=== PATIENT | female | born 1975 | race African-American/Black ===

== ENCOUNTER → 2016-10-28 | Outpatient (CLI) | payer OTHER ==
[~2016-10-28] MED LIST: IBUP-232 PO; PREN0.01 PO; SENN1TAB PO
[2016-10-28 15:09] LABS: HEMATOCRIT 33.7 % (35.0-46.0); REVIEW FLAG FINAL
== END ==
LOC: CLAB 14:27
PROVIDERS: ATTEND Obstetrics & Gynecology
DX: Z34.83 Encounter for supervision of other normal pregnancy, third trimester (principal)
CPT/HCPCS: 36415; 82951; 85014; 85018; 86703; 86850; 86900; 86901; 87340; 90384; J2790

== ENCOUNTER → 2016-11-25 | Outpatient (CLI) | payer OTHER ==
[~2016-11-25] MED LIST changes: +BETAMETHASONE SOD PHOS/ACETATE SUSP 30 MG/5 ML VIAL IM SCH
== END ==
LOC: HOBG 13:00 → HPND 13:00
PROVIDERS: ATTEND Obstetrics & Gynecology
DX: Z34.83 Encounter for supervision of other normal pregnancy, third trimester (principal); Z79.899 Other long term (current) drug therapy
CPT/HCPCS: 96372; J0702

== ENCOUNTER → 2016-11-26 | Outpatient (CLI) | payer OTHER ==
[~2016-11-26] MED LIST changes: +BETAMETHASONE SOD PHOS/ACETATE SUSP 30 MG/5 ML VIAL IM ONE; -BETAMETHASONE SOD PHOS/ACETATE SUSP 30 MG/5 ML VIAL IM SCH
== END ==
LOC: HOBG 13:07
PROVIDERS: ATTEND Obstetrics & Gynecology
DX: O90.9 Complication of the puerperium, unspecified (principal)
CPT/HCPCS: J0702

== ENCOUNTER 2016-12-20 06:23 | Observation (INO) | payer OTHER ==
[~2016-12-20 06:23] MED LIST changes: -BETAMETHASONE SOD PHOS/ACETATE SUSP 30 MG/5 ML VIAL IM ONE; -IBUP-232 PO; -SENN1TAB PO
--- NOTE | 2016-12-20 07:25 | PD ---
HPI Chief Complaint Contractions 36 weeks Date Seen: Dec 20, 2016 Travel History International Travel<30 Days: No Contact w/Intl Traveler<30Days: No Known Affected Area: No History of Present Illness HPI Patient is a 41-year-old black female 36 weeks presents with irregular contractions. 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 [place] Alcohol Use: No Tobacco Use: No Substance Abuse: No Allergies-Medications (Allergen,Severity, Reaction): Coded Allergies: No Known Allergies (Unverified , 10/06/13) Home Meds Reported Medications Multivit/Min/Fol Ac/Iron/Pren ( Vit ( Plus)) Tab1 Tab PO DAILY CONTINUE WHILE 10/06/13 Review of Systems General / Constitutional: No: Fever, Weight Gain, Chills, Other Eyes: No: Diploplia, Blurred Vision, Visual changes, Pain, Photophobia HENT: No: Headaches, Vertigo, Lightheadedness Cardiovascular: No: Irregular Rhythm, Chest Pain or Discomfort, Palpitations, Tachycardia, Syncope, Varicosities, Edema, Cyanosis Respiratory: No: Cough, Short of Breath, Other Gastrointestinal: No: Nausea, Vomiting, Diarrhea Genitourinary: No: Decreased Urinary Output, Oliguria Musculoskeletal: No: Limited ROM, Weakness, Cramping, Edema, Pain Skin: No Rash, No Itching, No Dryness, No Lumps, No Change in Pigmentation, No Change in Nails, No Alopecia, No Lesions Neurologic: No: Weakness, Dizziness, Syncope, Focal Abnormalities, Coordination Problem, Headache, Slurred Speech, Seizures Psychiatric: No: Depression, Suicidal Ideations, Homicidal Ideation Endocrine: No: Heat Intolerance, Cold Intolerance, Polydipsia, Polyuria, Other Physical Exam Narrative GENERAL: Well-nourished, well-developed patient. SKIN: Warm and dry. HEAD: Normocephalic and atraumatic. EYES: No scleral icterus. No injection or drainage. ENT: No nasal drainage noted. Mucous membranes pink. Airway patent. NECK: Supple, trachea midline. No JVD. CARDIOVASCULAR: Regular rate and rhythm without murmurs, gallops, or rubs. RESPIRATORY: Breath sounds equal bilaterally. No accessory muscle use. BREASTS: Bilateral exam showed no masses , no retractions, no nipple discharge. ABDOMEN/GI: Abdomen soft, non-tender, bowel sounds present, no rebound, no guarding Gravid to [36-] weeks size Fundal Height: [-35] GENITOURINARY: External Genitalia: intact and normal in appearance BUS glands: [-] Cervix: [-] Dilatation: [4-5-] Effacement: [-50] Station: [-3] floating Presentation: [-vtx] Membranes: [intact ] Uterine Contractions: [-irreg] FHT's: Category: [-1] Baseline: [-133] Reactive: [yes-] Variability: [-mod] Decels: [-none] EXTREMITIES: No cyanosis or edema. BACK: Nontender without obvious deformity. No CVA tenderness. NEUROLOGICAL: Awake and alert. Motor and sensory grossly within normal limits. Five out of 5 muscle strength in all muscle groups. Normal speech. MDM Interpretation(s) Patient is a 41-year-old black female at 36 weeks presents with the irregular contractions, no bleeding or leakage of fluid, heart rate tracing is reactive, she is soraida every 4-7 minutes approximately, cervix is multiparous 4-5/ 50% very posterior with floating presenting part is vertex. Her physicians Dr. Duval and I spoke with her this morning. Dr. alfonso would like to keep her in the hospital at least until midday to reevaluated to allow see if she's, change her cervix or progress that she has a history of fast labor in the past approximately that this gestation she did not with comfortable sending her home and so she will stay and be checked by her OB provider Plan Plan to observe the patient in hospital to await any cervical change and reevaluate in a few hours Diagnosis Diagnosis: Primary Impression: Threatened premature labor affecting , less than 37 weeks, antepartum Shabbir Hill II, MD Dec 20, 2016 07:25
[2016-12-20] MEDS ORDERED: SODIUM CHLORIDE 0.9% FLUSH 5 ML FLUSH IVF PRN (07:45)
[2016-12-20] MEDS ORDERED: LIDOCAINE HCL 1% 50 ML VIAL I-DERMAL PRN (08:30)
[2016-12-20] MEDS ORDERED: SODIUM CHLORIDE 0.9% FLUSH 5 ML FLUSH IVF SCH (09:00)
--- NOTE | 2016-12-20 09:15 | PD.OB.ANTE ---
Subjective Diagnosis: (1) Threatened premature labor affecting , less than 37 weeks, antepartum Diagnosis: Principal Antepartum ROS: Reports: Contractions (irregular, much less now s/p IVF & bedrest), Denies: New complaints, Loss of fluid, Vaginal bleeding, movement normal, Other Objective Physical Exam GENERAL: Well-nourished, well-developed patient. resting in bed CARDIOVASCULAR: Regular rate and rhythm without murmurs, gallops, or rubs. RESPIRATORY: Breath sounds equal bilaterally. No accessory muscle use. ABDOMEN/GI: Abdomen soft, non-tender. Fundus: c/w dates GENITOURINARY: deferred this check FHT's: Cat I but due to pt sleeping & rolling from side to side occasionally has been coming off monitor EXTREMITIES: No cyanosis or edema, non-tender, without signs of DVT. Assessment and Plan Problem List: (1) Threatened premature labor affecting , less than 37 weeks, antepartum Status: Acute Assessment and Plan 41 yo at 35w6d admit for contractions/dilation, threatened labor 1) contractions/dilation, threatened PTL: pt doing better s/p IVF and rest; will plan to recheck in 4-6 hours, if unchanged ok to d/c with precautions , if any change will continue expectant mgmt 2) d/c planning: not yet meeting criteria Leeanna Morales MD Dec 20, 2016 09:14
[2016-12-20 11:45] VITALS: PULSE 102
[2016-12-20 11:49] VITALS: BP 137/79; PULSE 87
[2016-12-20 11:50] VITALS: PULSE 87
[2016-12-20 12:00] VITALS: RESP 20
== END 2016-12-20 14:58 | disposition home or self-care (01) ==
LOC: HOBED 06:23 → H2EA 07:56
PROVIDERS: ADMIT Obstetrics & Gynecology; ATTEND Obstetrics & Gynecology
DX: O60.03 Preterm labor without delivery, third trimester (principal); Z3A.36 36 weeks gestation of pregnancy
CPT/HCPCS: 99284; G0378

== ENCOUNTER 2016-12-22 05:41 | Inpatient (IN) | payer OTHER ==
[2016-12-22] VITALS (9 sets, daily range): BP systolic 108–136; BP diastolic 62–89; PULSE 73–91; RESP 18–20; TEMP 98.3–98.4
[2016-12-22] MEDS: LACTATED RINGER'S 1000 ML INJ 1,000 ML IV SCH ×2 (06:05→12:16)
[2016-12-22] MEDS ORDERED: LACTATED RINGER'S 1000 ML INJ 1,000 ML IV PRN (06:07)
--- NOTE | 2016-12-22 06:07 | PD ---
HPI Chief Complaint Contractions and rupture membranes Date Seen: Dec 22, 2016 Time Seen: 06:00 Travel History International Travel<30 Days: No Contact w/Intl Traveler<30Days: No Known Affected Area: No History of Present Illness HPI 41-year-old who is at 36 weeks and 3 days gestation based on a due date of January 18, 2017 comes today complaining of rupture membranes at home at 04 30 with clear fluid along with contractions. Patient has good movement and no other complaints Para: 2 : 3 Last Menstrual Period: Dec 22, 2016 History Past Medical History Medical History: Denies Significant Hx Obstetric History Obstetric History Continues vaginal delivery 2006 ,2012 Past Surgical History Surgical History: No Previous Surgery Family History Family History: Negative Social History Alcohol Use: No Tobacco Use: No Substance Abuse: No Allergies-Medications (Allergen,Severity, Reaction): Coded Allergies: No Known Allergies (Unverified , 10/06/13) Home Meds Reported Medications Multivit/Min/Fol Ac/Iron/Pren ( Vit ( Plus)) Tab1 Tab PO DAILY CONTINUE WHILE 10/06/13 Review of Systems Except as stated in HPI: all other systems reviewed are Neg Physical Exam Narrative GENERAL: Well-nourished, well-developed patient. SKIN: Warm and dry. HEAD: Normocephalic and atraumatic. EYES: No scleral icterus. No injection or drainage. ENT: No nasal drainage noted. Mucous membranes pink. Airway patent. NECK: Supple, trachea midline. No JVD. CARDIOVASCULAR: Regular rate and rhythm without murmurs, gallops, or rubs. RESPIRATORY: Breath sounds equal bilaterally. No accessory muscle use. BREASTS: Bilateral exam showed no masses , no retractions, no nipple discharge. ABDOMEN/GI: Abdomen soft, non-tender, bowel sounds present, no rebound, no guarding Gravid to [-36] weeks size Fundal Height: [-] GENITOURINARY: External Genitalia: intact and normal in appearance BUS glands: [-Normal] Cervix: [-Posterior] Dilatation: [4-] Effacement: - 80 Station: [--3 Presentation: [-Vertex] Membranes: [ruptured] Uterine Contractions: [-Every 3 minutes] FHT's: Category: [1-] Baseline: [-140] Reactive: [-Moderate] Variability: [-Moderate] Decels: [-Absent] EXTREMITIES: No cyanosis or edema. BACK: Nontender without obvious deformity. No CVA tenderness. NEUROLOGICAL: Awake and alert. Motor and sensory grossly within normal limits. Five out of 5 muscle strength in all muscle groups. Normal speech. Data Data Orders Ob (2e) Additional Admit Info (12/22/16 05:51) [facility] Medical Record Reviewed: Yes Plan 41-year-old who is at 36 weeks gestation gross rupture membranes presents here in labor GBS is unknown Plan admission Diagnosis Diagnosis: Primary Impression: Irregular uterine contractions Additional Impressions: Rupture of amniotic sac under 24 hours before onset of labor 36 weeks gestation of Mariposa Araujo MD Dec 22, 2016 06:07
[2016-12-22] MEDS ORDERED: LIDOCAINE HCL 1% 50 ML VIAL INFIL PRN (06:15)
[2016-12-22] MEDS ORDERED: PENICILLIN G POTASSIUM INJ 5,000,000 UNITS in SODIUM CHLORIDE 0.9% INJ 100 ML IV ONE (06:15)
[2016-12-22] MEDS ORDERED: CITRIC ACID-SODIUM CITRATE LIQ 30 ML UDC PO SCH (06:15)
[2016-12-22] MEDS ORDERED: SODIUM CHLORID 0.9% 500 ML INJ 500 ML IV PRN (06:15)
[2016-12-22] MEDS ORDERED: ONDANSETRON HCL 4 MG/2 ML VIAL IV PRN (06:15)
[2016-12-22] MEDS ORDERED: OXYTOCIN 30 UNITS-500ML PREMIX 500 ML IV ONE (06:15)
[2016-12-22] MEDS ORDERED: LIDOCAINE HCL 1% 50 ML VIAL I-DERMAL PRN (06:15)
[2016-12-22] MEDS ORDERED: MINERAL OIL 10 ML VIAL TOPICAL PRN (06:15)
[2016-12-22 06:18] LABS: AUTOMATED NEUTROPHIL # 9.3 TH/MM3 (1.8-7.7); BASOPHIL # 0.1 TH/MM3 (0-0.2); BASOPHIL % 0.7 % (0.0-2.0); EOSINOPHIL # 0.2 TH/MM3 (0-0.4); EOSINOPHIL % 1.1 % (0.0-4.0); HEMATOCRIT 32.3 % (35.0-46.0); HEMO FLAGS DIFF FINAL; LYMPH % 23.2 % (9.0-44.0); LYMPHOCYTE # 3.1 TH/MM3 (1.0-4.8); MEAN CELL VOLUME 76.2 FL (80.0-100.0); MEAN CORPUSCULAR HEMOGLOBIN 25.5 PG (27.0-34.0); MEAN CORPUSCULAR HGB CONC 33.4 % (32.0-36.0); MONO % 6.2 % (0.0-8.0); NEUT % 68.8 % (16.0-70.0); PLATELET COUNT 169 TH/MM3 (150-450); RED BLOOD COUNT 4.24 MIL/MM3 (4.00-5.30); RED CELL DISTRIBUTION WIDTH 16.6 % (11.6-17.2); WHITE BLOOD COUNT 13.5 TH/MM3 (4.0-11.0)
[2016-12-22] MEDS ORDERED: SODIUM CHLOR 0.9% 1000 ML INJ 1,000 ML IV PRN (06:27)
[2016-12-22] MEDS ORDERED: MEPERIDINE HCL 25 MG/ML VIAL ONE (06:51)
--- NOTE | 2016-12-22 07:28 | PD.OB.DELI ---
Anesthesia: None Episiotomy: None Vaginal Delivery: Normal Presentation: Occiput anterior Nuchal Cord: None Delayed cord clamping (45 sec): Yes Infant: Male One Minute : 9 Five Minute : 9 Weight: 7 9 Infant Care: Suctioned, Spontaneous crying Placenta: Spontaneous delivery Laceration: 2 deg Additional Information precipitous second stage with single push and right labial tear near clitoris-- injected with lidocaine and cosmetic closure with monocryl and good result EBL average give 25 mg demerol IV during repair Althea Duval MD Dec 22, 2016 07:28
[2016-12-22] MEDS ORDERED: SODIUM CHLORIDE 0.9% FLUSH 5 ML FLUSH IV PRN (07:30)
[2016-12-22] MEDS ORDERED: WITCH HAZEL 50%/GLYCERIN 12.5% 40 PAD JAR TOPICAL PRN (07:30)
[2016-12-22] MEDS ORDERED: MEPERIDINE HCL 25 MG/ML VIAL IV PUSH ONE (07:30)
[2016-12-22] MEDS ORDERED: ZOLPIDEM TARTRATE 5 MG TAB PO PRN (07:30)
[2016-12-22] MEDS ORDERED: ALUMINUM/MAGNESIUM/SIMETH 30 ML CUP PO PRN (07:30)
[2016-12-22] MEDS ORDERED: ONDANSETRON ODT 4 MG TAB PO PRN (07:30)
[2016-12-22] MEDS ORDERED: BENZOCAINE 20% TOPICAL SPRAY 60 ML CAN TOPICAL PRN (07:30)
[2016-12-22] MEDS: IBUPROFEN 600 MG TAB PO PRN ×3 (08:09→22:28)
--- NOTE | 2016-12-22 08:15 | HHI.PR ---
HISTOLOGY AIDE Note Note Called for precipitous delivery. Patient is at 36 weeks G3 now P3 who was admitted 1 hour prior with a h/o rapid labors. Cx c/c/0, vertex. Pt pushed with delivery of infant male over 2nd lacerations and right periurethral laceration. Apgars 8/9, 3415gms at 0636. Placenta delivered. Dr Duval arrived and completed remained of repair. Mariposa Araujo MD Dec 22, 2016 08:15
[2016-12-22] MEDS: SODIUM CHLORIDE 0.9% FLUSH 5 ML FLUSH IV SCH (08:38)
[2016-12-22] MEDS: PENICILLIN G POTASSIUM INJ 2,500,000 UNITS in SODIUM CHLORIDE 0.9% INJ 100 ML IV SCH ×3 (08:39→16:38)
[2016-12-22] MEDS: ACETAMINOPHEN 325 MG TAB PO PRN ×3 (10:55→19:34)
[2016-12-22] MEDS: DOCUSATE SODIUM 50 MG/SENNA 8.6 MG TAB PO PRN (10:58)
[2016-12-22] MEDS ORDERED: MEASLES, MUMPS, RUBELLA VACCINE 0.5 ML VIAL SQ ONE (16:00)
[2016-12-22] MEDS ORDERED: DIPHTH/TETANUS/ACEL PERTUSSIS (BOOSTER) 0.5 ML VIAL/PFS IM ONE (16:00)
[2016-12-23] MEDS: ACETAMINOPHEN 325 MG TAB PO PRN ×3 (00:07→12:59)
[2016-12-23] MEDS ORDERED: IBUP-232 PO (00:56)
--- NOTE | 2016-12-23 00:56 | HHI.DCPOC ---
Discharge Care Plan Report Symptoms to Your Doctor -Temperate above 100.5 degrees -Redness, of incision or excessive or foul smelling drainage -Unusual pain or calf pain -Increased vaginal bleeding -Painful or difficulty urinating -Feelings of extreme sadness or anxiety after 2 weeks Goals to Promote Your Health * To prevent worsening of your condition and complications * To maintain your health at the optimal level Directions to Meet Your Goals Take your medications as prescribed Follow your dietary instruction Follow activity as directed Ensure plenty of rest for recovery Drink fluids for hydration Keep your appointments as scheduled Take your immunizations and boosters as scheduled If your symptoms worsen call your PCP, if no PCP go to Urgent Care Center or Emergency Room Smoking is Dangerous to Your Health. Avoid second hand smoke Call the 24-hour crisis hotline for domestic abuse at Althea Duval MD Dec 23, 2016 00:56
[2016-12-23] MEDS: PENICILLIN G POTASSIUM INJ 2,500,000 UNITS in SODIUM CHLORIDE 0.9% INJ 100 ML IV SCH ×3 (06:00→14:00)
[2016-12-23] MEDS: LACTATED RINGER'S 1000 ML INJ 1,000 ML IV SCH ×2 (06:07→14:07)
[2016-12-23] MEDS: IBUPROFEN 600 MG TAB PO PRN ×2 (06:19→12:59)
[2016-12-23] MEDS: SODIUM CHLORIDE 0.9% FLUSH 5 ML FLUSH IV SCH (06:52)
[2016-12-23] MEDS ORDERED: SENN1TAB PO (08:34)
--- NOTE | 2016-12-23 08:36 | HHI.OB ---
Subjective Post Day: 1 Remarks s/p Objective Vitals/I&O Vital Signs Date Time Temp Pulse Resp B/P Pulse Ox O2 Delivery O2 Flow Rate FiO2 12/22/16 09:52 98.3 86 18 128/67 12/22/16 09:20 87 124/62 Objective Remarks GENERAL: Well-nourished, well-developed patient. CARDIOVASCULAR: Regular rate and rhythm without murmurs, gallops, or rubs. RESPIRATORY: Breath sounds equal bilaterally. No accessory muscle use. ABDOMEN/GI: Abdomen soft, non-tender. Fundus: Firm, non-tender at umbilicus. GENITOURINARY: Light to moderate bleeding. EXTREMITIES: No cyanosis or edema, non-tender, without signs of DVT. Medications and IVs Current Medications Medications (Trade) Dose Ordered Sig/Sofia Route Start Time Stop Time Status Last Admin Lactated Ringer's 1,000 ml @ 125 mls/hr Q8H IV 12/22/16 06:07 12/22/16 06:05 Lactated Ringer's 1,000 ml @ 3,000 mls/hr Q20M PRN IV 12/22/16 06:07 Sodium Chloride 500 ml @ 1,000 mls/hr ONCE PRN IV 12/22/16 06:15 (NS 1000 ml Inj) 1,000 ml @ 100 mls/hr Q10H PRN IV 12/22/16 06:27 (Zofran Inj) 4 mg Q6H PRN IV 12/22/16 06:15 (fentaNYL INJ) 50 mcg Q1H PRN IV PUSH 12/22/16 06:15 Fentanyl Citrate 100 mcg 100 mcg Q1H PRN IV PUSH 12/22/16 06:15 (Pfizerpen-G Inj/ NS Inj) 100 ml @ 200 mls/hr Q4H IV 12/22/16 10:00 (Muri-Lube Oil) 10 ml UNSCH PRN TOPICAL 12/22/16 06:15 (NS Flush) 2 ml BID IV 12/22/16 09:00 (NS Flush) 2 ml UNSCH PRN IV 12/22/16 07:30 (Tylenol) 650 mg Q4H PRN PO 12/22/16 07:30 12/23/16 06:19 (Motrin) 600 mg Q6H PRN PO 12/22/16 07:30 12/23/16 06:19 (Americaine 20% Top Spr) 1 spray Q4H PRN TOPICAL 12/22/16 07:30 12/22/16 08:38 (Tucks Pads) 1 applic QID PRN TOPICAL 12/22/16 07:30 12/22/16 08:37 (Farzana-Colace) 2 tab Q12H PRN PO 12/22/16 07:30 12/22/16 10:58 (Ambien) 5 mg HS PRN PO 12/22/16 07:30 (Mag-Al Plus Susp Liq) 15 ml Q8H PRN PO 12/22/16 07:30 (Zofran Odt) 4 mg Q6H PRN PO 12/22/16 07:30 Assessment/Plan Problem List: (1) delivery, delivered Assessment and Plan PPD#1 doing well but exhausted, not sure if desires d/c today or tmrw continue supportive care not yet meeting d/c criteria, will re-eval later today Discharge Planning routine Leeanna Morales MD Dec 23, 2016 08:35
[2016-12-23 09:00] VITALS: BP 132/64; PULSE 68; RESP 18; TEMP 97.9
[2016-12-23] MEDS: DOCUSATE SODIUM 50 MG/SENNA 8.6 MG TAB PO PRN (12:59)
== END 2016-12-23 17:15 | disposition home or self-care (01) | DRG 775 ==
LOC: HOBED 05:41 → H2EA 05:52 → H2EB 06:09 → H1EA 09:29
PROVIDERS: ADMIT Obstetrics & Gynecology; ATTEND Obstetrics & Gynecology
PROC: 10E0XZZ Delivery of Products of Conception, External Approach (ICD-10-PCS; principal; 2016-12-22)
PROC: 0KQM0ZZ Repair Perineum Muscle, Open Approach (ICD-10-PCS; 2016-12-22)
PROC: 0UQMXZZ Repair Vulva, External Approach (ICD-10-PCS; 2016-12-22)
DX: O60.14X0 Preterm labor third trimester with preterm delivery third trimester, not applicable or unspecified (principal); O09.523 Supervision of elderly multigravida, third trimester; Z37.0 Single live birth; Z3A.36 36 weeks gestation of pregnancy; O70.1 Second degree perineal laceration during delivery; O71.82 Other specified trauma to perineum and vulva
CPT/HCPCS: 59025; 85025; 85461; 86850; 86900; 86901; 90384; 99285; J2175; J2590; J2790; J7120

== ENCOUNTER 2017-06-29 15:05 | Emergency (ER) | payer OTHER ==
[~2017-06-29 15:05] MED LIST changes: +IBUP-232 PO; +SENN1TAB PO
[2017-06-29 15:12] VITALS: BP 148/79; PULSE 87; RESP 18; TEMP 98.1; O2SAT 98
[2017-06-29 15:26] LABS: BLOOD, URINE NEG (NEG); GLUCOSE,URINE NEG (NEG); KETONE, URINE NEG (NEG); NITRITE,URINE NEG (NEG); PH, URINE 5.5 (5.0-8.5)
[2017-06-29 15:35] LABS: BACTERIA, URINE MOD /hpf; METHOD OF COLLECTION CLEAN CATCH; RBC, URINE 0-3 /hpf (0-3); SQUAMOUS EPITHELIAL CELL URINE 0-5 /hpf (0-5); URINE COLOR YELLOW (YELLW/STRAW); WBC, URINE 0-2 /hpf (0-5)
[2017-06-29 15:37] LABS: COMMENT (UR) CULTURE INDICATED; CULTURE IF INDICATED CULTURE INDICATED
[2017-06-29] MEDS ORDERED: KETOROLAC TROMETHAMINE 30 MG/ML (IVP) VIAL IV PUSH ONE (15:45)
[2017-06-29] MEDS ORDERED: SODIUM CHLOR 0.9% 1000 ML INJ 1,000 ML IV ONE (15:45)
[2017-06-29 15:48] LABS: AUTOMATED NEUTROPHIL # 3.6 TH/MM3 (1.8-7.7); BASOPHIL # 0.1 TH/MM3 (0-0.2); BASOPHIL % 1.4 % (0.0-2.0); EOSINOPHIL # 0.2 TH/MM3 (0-0.4); EOSINOPHIL % 2.5 % (0.0-4.0); HEMATOCRIT 37.6 % (35.0-46.0); HEMO FLAGS DIFF FINAL; LYMPH % 31.1 % (9.0-44.0); LYMPHOCYTE # 2.1 TH/MM3 (1.0-4.8); MEAN CELL VOLUME 80.1 FL (80.0-100.0); MEAN CORPUSCULAR HEMOGLOBIN 26.7 PG (27.0-34.0); MEAN CORPUSCULAR HGB CONC 33.3 % (32.0-36.0); MONO % 8.8 % (0.0-8.0); NEUT % 56.2 % (16.0-70.0); PLATELET COUNT 217 TH/MM3 (150-450); RED BLOOD COUNT 4.69 MIL/MM3 (4.00-5.30); RED CELL DISTRIBUTION WIDTH 16.4 % (11.6-17.2); WHITE BLOOD COUNT 6.6 TH/MM3 (4.0-11.0)
--- NOTE | 2017-06-29 15:53 | PD ---
HPI Chief Complaint: Flank/Kidney Pain Time Seen by Provider: 15:25 Travel History International Travel<30 days: No Contact w/Intl Traveler<30days: No Traveled to known affect area: No History of Present Illness HPI This is a 41-year-old female who presents to the emergency Department with onset of right sided flank pain that started 4 days ago, intermittent at first and more constant today, throbbing and aching slightly radiating to the right mid abdomen. It's worse with movement. She denies any shortness of breath or pleuritic pain. She denies any vomiting, although she has felt somewhat nauseous and she's felt some chills but she's not had a fever. She does have a family history of kidney stones. She is currently nursing. She does say she has chronic constipation and she is not currently menstruating. She denies any vaginal discharge. PFSH Past Medical History Medical History: Denies Significant Hx ?: Not Past Surgical History Surgical History: No Previous Surgery Social History Alcohol Use: No Tobacco Use: No Substance Use: No Allergies-Medications (Allergen,Severity, Reaction): Coded Allergies: No Known Allergies (Unverified , 06/29/17) Reported Meds & Prescriptions Reported Meds & Active Scripts Active No Active Prescriptions or Reported Medications Review of Systems Except as stated in HPI: all other systems reviewed are Neg Physical Exam Narrative GENERAL: Uncomfortable appearing, in pain SKIN: Focused skin assessment warm and dry. HEAD: Atraumatic. Normocephalic. EYES: Pupils equal and round. No injection or drainage. ENT: Moist mucous membranes NECK: Trachea midline. CARDIOVASCULAR: Regular rate and rhythm. No murmur appreciated. RESPIRATORY: Clear to auscultation. Breath sounds equal bilaterally. GASTROINTESTINAL: Abdomen soft, non-tender, nondistended. : Right CVA tenderness MUSCULOSKELETAL: No focal lumbar vertebral tenderness NEUROLOGICAL: Awake and alert. No obvious cranial nerve deficits. Moving all extremities. PSYCHIATRIC: Appropriate mood and affect; insight and judgment normal. Data Data Last Documented VS Vital Signs Date Time Temp Pulse Resp B/P (MAP) Pulse Ox O2 Delivery O2 Flow Rate FiO2 06/29/17 15:12 98.1 87 18 148/79 (102) 98 Orders Orders Urinalysis - C+S If Indicated (06/29/17 15:16) Complete Blood Count With Diff (06/29/17 15:32) Comprehensive Metabolic Panel (06/29/17 15:32) ^ Insert Iv (06/29/17 15:32) Ed Urine Pregnancytest Poc (06/29/17 15:32) Ketorolac Inj (Toradol Inj) (06/29/17 15:45) Sodium Chlor 0.9% 1000 Ml Inj (Ns 1000 M (06/29/17 15:45) Ct Abd/Pel W/O Iv Contrast (06/29/17 ) Urine Culture (06/29/17 15:20) Labs Laboratory Tests Test 06/29/17 15:20 06/29/17 15:42 Urine Collection Type CLEAN CATCH Urine Color YELLOW Urine Turbidity CLEAR Urine pH 5.5 Urine Specific [place] 1.015 Urine Protein NEG mg/dL Urine Glucose (UA) NEG mg/dL Urine Ketones NEG mg/dL Urine Occult Blood NEG Urine Nitrite NEG Urine Bilirubin NEG Urine Leukocyte Esterase NEG Urine RBC 0-3 /hpf Urine WBC 0-2 /hpf Urine Squamous Epithelial Cells 0-5 /hpf Urine Bacteria MOD /hpf Microscopic Urinalysis Comment CULTURE INDICATED Urine Collection Time 15:20 [facility] Medical Decision Making Medical Screen Exam Complete: Yes Emergency Medical Condition: Yes Interpretation(s) Afebrile, no tachycardia, hypertensive No leukocytosis Urinalysis: Moderate bacteria Differential Diagnosis Nephrolithiasis, pyelonephritis, musculoskeletal back pain, herpes zoster Narrative Course This is a 41-year-old female who presents to the emergency department with right sided flank pain that's been going on for 4 days. On exam she has right CVA tenderness and appears uncomfortable. She does have a lot of pain with movement which would suggest a musculoskeletal etiology of her symptoms. Labs will be obtained, urinalysis, and a CT will be obtained to evaluate for possible nephrolithiasis. Patient was given Toradol and IV fluids and will be signed out to oncoming provider. Scripts No Active Prescriptions or Reported Meds Renée Guthrie MD Jun 29, 2017 15:53
[2017-06-29 15:55] LABS: CHLORIDE 105 MEQ/L (98-107); POTASSIUM 3.9 MEQ/L (3.5-5.1); SODIUM (NA) 140 MEQ/L (136-145)
[2017-06-29 15:59] LABS: ANION GAP 10 MEQ/L (5-15); BICARBONATE 24.8 MEQ/L (21.0-32.0); BLOOD UREA NITROGEN 12 MG/DL (7-18)
[2017-06-29 16:01] LABS: ALT (GPT) 23 U/L (10-53)
[2017-06-29 16:02] LABS: AST (GOT) 18 U/L (15-37); GLOMERULAR FILTRATION RATE 78 ML/MIN (>89)
[2017-06-29 16:03] LABS: TOTAL BILIRUBIN ADULT 0.2 MG/DL (0.2-1.0)
[2017-06-29 16:04] LABS: ALKALINE PHOSPHATASE 123 U/L (45-117)
--- NOTE | 2017-06-29 16:23 | PD ---
Data Data Last Documented VS Vital Signs Date Time Temp Pulse Resp B/P (MAP) Pulse Ox O2 Delivery O2 Flow Rate FiO2 06/29/17 15:12 98.1 87 18 148/79 (102) 98 Orders Orders Urinalysis - C+S If Indicated (06/29/17 15:16) Complete Blood Count With Diff (06/29/17 15:32) Comprehensive Metabolic Panel (06/29/17 15:32) ^ Insert Iv (06/29/17 15:32) Ed Urine Pregnancytest Poc (06/29/17 15:32) Ketorolac Inj (Toradol Inj) (06/29/17 15:45) Sodium Chlor 0.9% 1000 Ml Inj (Ns 1000 M (06/29/17 15:45) Ct Abd/Pel W/O Iv Contrast (06/29/17 ) Urine Culture (06/29/17 15:20) Labs Laboratory Tests Test 06/29/17 15:20 06/29/17 15:42 Urine Collection Type CLEAN CATCH Urine Color YELLOW Urine Turbidity CLEAR Urine pH 5.5 Urine Specific [place] 1.015 Urine Protein NEG mg/dL Urine Glucose (UA) NEG mg/dL Urine Ketones NEG mg/dL Urine Occult Blood NEG Urine Nitrite NEG Urine Bilirubin NEG Urine Leukocyte Esterase NEG Urine RBC 0-3 /hpf Urine WBC 0-2 /hpf Urine Squamous Epithelial Cells 0-5 /hpf Urine Bacteria MOD /hpf Microscopic Urinalysis Comment CULTURE INDICATED Urine Collection Time 15:20 White Blood Count 6.6 TH/MM3 Red Blood Count 4.69 MIL/MM3 Hemoglobin 12.5 GM/DL Hematocrit 37.6 % Mean Corpuscular Volume 80.1 FL Mean Corpuscular Hemoglobin 26.7 PG Mean Corpuscular Hemoglobin Concent 33.3 % Red Cell Distribution Width 16.4 % Platelet Count 217 TH/MM3 Mean Platelet Volume 10.6 FL Neutrophils (%) (Auto) 56.2 % Lymphocytes (%) (Auto) 31.1 % Monocytes (%) (Auto) 8.8 % Eosinophils (%) (Auto) 2.5 % Basophils (%) (Auto) 1.4 % Neutrophils # (Auto) 3.6 TH/MM3 Lymphocytes # (Auto) 2.1 TH/MM3 Monocytes # (Auto) 0.6 TH/MM3 Eosinophils # (Auto) 0.2 TH/MM3 Basophils # (Auto) 0.1 TH/MM3 CBC Comment DIFF FINAL Differential Comment Blood Urea Nitrogen 12 MG/DL Creatinine 0.96 MG/DL Random Glucose 124 MG/DL Total Protein 7.5 GM/DL Albumin 3.7 GM/DL Calcium Level 9.0 MG/DL Alkaline Phosphatase 123 U/L Aspartate Amino Transf (AST/SGOT) 18 U/L Alanine Aminotransferase (ALT/SGPT) 23 U/L Total Bilirubin 0.2 MG/DL Sodium Level 140 MEQ/L Potassium Level 3.9 MEQ/L Chloride Level 105 MEQ/L Carbon Dioxide Level 24.8 MEQ/L Anion Gap 10 MEQ/L Estimat Glomerular Filtration Rate 78 ML/MIN [facility] Supervised Visit with ERIC: No Narrative Course Patient care assumed from Dr. Garcia at 1600 shift change. This is a 41-year- old female presents emergency department for evaluation of right flank pain. Recent mother 3 months ago she is still breast-feeding and has not had a return of normal periods. She does have family history of kidney stones. Given Toradol by Dr. Rocha is now feeling better. She is awaiting CAT scan. UA CBC CMP are within normal limits. Last 24 hours Impressions Abdomen/Pelvis CT 06/29/17 0000 Signed Impressions: Service Date/Time: June 16:32 - CONCLUSION: 1. Diastases of the rectus abdominis aponeurosis at the umbilicus without hernia. 2. No acute intraperitoneal or pelvic process to explain current clinical symptoms. Specifically, the no renal calculi. The appendix is radiographically normal. Tay Gresham MD Results were discussed with the patient and she was provided copies of her reports, she is elated, she would like to leave. This time she is stable for discharge. Cause of her pain yet unknown likely musculoskeletal in nature. Discussed return to ED criteria. Diagnosis Primary Impression: Right flank pain Patient Instructions: Flank Pain (ED), General Instructions Scripts No Active Prescriptions or Reported Meds Disposition: 01 DISCHARGE HOME Condition: Stable Josue Pulido MD Jun 29, 2017 16:23
--- NOTE | 2017-06-29 16:55 | RADRPT ---
EXAM DATE/TIME: 06/29/2017 16:32 [facility] COMPARISON: No previous studies available for comparison. INDICATIONS : Right flank pain x 4 days. ORAL CONTRAST: No oral contrast ingested. RADIATION DOSE: 18.17 CTDIvol (mGy) MEDICAL HISTORY : None SURGICAL HISTORY : None. ENCOUNTER: Initial ACUITY: 4 - 6 days PAIN SCALE: 4/10 LOCATION: Right flank TECHNIQUE: Volumetric scanning of the abdomen and pelvis was performed. Using automated exposure control and ad justment of the mA and/or kV according to patient size, radiation dose was kept as low as reasonably achievable to obtain optimal diagnostic quality images. DICOM format image data is available electro nically for review and comparison. FINDINGS: LOWER LUNGS: The visualized lower lungs are clear. LIVER: Homogeneous density without lesion. There is no dilation of the biliary tree. No calcified gallston es. Gallbladder is decompressed SPLEEN: Normal size without lesion. PANCREAS: Within normal limits. KIDNEYS: Normal in size and shape. There is no mass, stone, or hydronephrosis. ADRENAL GLANDS: Within normal limits. VASCULAR: There is no aortic aneurysm. BOWEL/MESENTERY: The stomach, small bowel, and colon demonstrate no acute abnormality. There is no free intraperitone al air or fluid. The appendix is identified and is radiographically normal. ABDOMINAL WALL: Diastases of the rectus abdominis aponeurosis at the umbilicus without hernia. RETROPERITONEUM: There is no lymphadenopathy. BLADDER: No wall thickening or mass. REPRODUCTIVE: Uterus is prominent but otherwise radiographically intact. INGUINAL: There is no lymphadenopathy or hernia. MUSCULOSKELETAL: Within normal limits for patient age. CONCLUSION: 1. Diastases of the rectus abdominis aponeurosis at the umbilicus without hernia. 2. No acute intraperitoneal or pelvic process to explain current clinical symptoms. Specifically, the no renal calculi. The appendix is radiographically normal. Tay Gresham MD on June 29, 2017 at 16:47 Board Certified Radiologist. This report was verified electronically.
== END 2017-06-29 17:45 | disposition home or self-care (01) ==
LOC: PHED 15:05
DX: R10.9 Unspecified abdominal pain (principal)
CPT/HCPCS: 74176; 80053; 81001; 84703; 85025; 87086; 96361; 96374; 99285; J1885; J7030